=== PATIENT | female | born 1995 | race Caucasian/White ===

== ENCOUNTER 2018-10-13 21:46 | Emergency (ER) | payer OTHER ==
--- NOTE | 2018-10-13 23:43 | ER Document Report ---
ED Medical Screen (RME) - General Chief Complaint: Chest Pain Stated Complaint: CHEST PAIN Time Seen by Provider: 10/13/18 23:41 Notes: 23-year-old female with chief complaint of sensation of pain in the center of her chest without so the sensation of her heart racing and palpitations. Intermittent lightheadedness reported. Denies passing out, difficulty breathing, fever, vomiting. Currently on doxycycline for Lyme's disease diagnosis, has been taking this for 1 week so far. Denies any other medications. Denies recreational drugs. TRAVEL OUTSIDE OF THE [place] IN LAST 30 DAYS: No Past Medical History - Social History Chew tobacco use (# tins/day): No Drug Abuse: None Renal/ Medical History: Denies: Hx Peritoneal Dialysis Physical Exam - Vital signs Vitals: Temp Pulse Resp BP Pulse Ox 98.2 F 73 14 120/70 100 10/13/18 22:29 10/13/18 22:29 10/13/18 22:29 10/13/18 22:29 10/13/18 22:29 - Cardiovascular Rhythm: Regular. No: Tachycardia Heart sounds: Normal auscultation, S1 appreciated, S2 appreciated Course - Vital Signs Vital signs: Temp Pulse Resp BP Pulse Ox 98.2 F 73 14 120/70 100 10/13/18 22:29 10/13/18 22:29 10/13/18 22:29 10/13/18 22:29 10/13/18 22:29
[2018-10-14 00:11] LABS: ABSOLUTE EOSINOPHILS # (AUTO) 0.4 10^3/uL (0.0-0.6); ABSOLUTE LYMPHOCYTES (AUTO) 2.4 10^3/uL (0.5-4.7); ABSOLUTE MONOCYTES (AUTO) 0.6 10^3/uL (0.1-1.4); ABSOLUTE NEUT (AUTO) 2.1 10^3/uL (1.7-8.2); BASOPHILS % (AUTO) 0.7 % (0-2); EOSINOPHILS % (AUTO) 7.8 % (0-6); HEMATOCRIT 34.6 % (36.0-47.0); HEMOGLOBIN 11.7 g/dL (12.0-15.5); LYMPHOCYTES % (AUTO) 43.8 % (13-45); MEAN CORPUSCULAR HEMOGLOBIN 28.2 pg (27.0-33.4); MEAN CORPUSCULAR HGB CONC 33.7 g/dL (32.0-36.0); MEAN CORPUSCULAR VOLUME 84 fl (80-97); MONOCYTES % (AUTO) 10.2 % (3-13); PLATELET COUNT 196 10^3/uL (150-450); RED BLOOD COUNT 4.14 10^6/uL (3.72-5.28); RED CELL DISTRIBUTION WIDTH 13.8 % (11.5-14.0); SEGMENTED NEUTROPHILS % (AUTO) 37.5 % (42-78); TOTAL CELLS COUNTED % (AUTO) 100 %; WHITE BLOOD COUNT 5.5 10^3/uL (4.0-10.5)
--- NOTE | 2018-10-14 00:13 | RADIOLOGY REPORT (SQ) ---
EXAM DESCRIPTION: XR CHEST 2 VIEWS COMPLETED DATE/TME: 10/13/2018 23:41 CLINICAL HISTORY: 23 years, Female, chest pain COMPARISON: None. NUMBER OF VIEWS: 2 TECHNIQUE: Frontal and lateral views of the chest LIMITATIONS: None. FINDINGS: Heart size is normal. Lungs are clear. No pneumothorax IMPRESSION: Negative chest copyright 2010 [employer]- All Rights Reserved
[2018-10-14 00:22] LABS: BLOOD UREA NITROGEN 10 mg/dL (7-20); CALCIUM 9.5 mg/dL (8.4-10.2); GLUCOSE 98 mg/dL (75-110); POTASSIUM 4.3 mmol/L (3.6-5.0)
[2018-10-14 00:34] LABS: CARBON DIOXIDE 28 mmol/L (22-30); CHLORIDE 106 mmol/L (98-107); SODIUM 139.9 mmol/L (137-145)
[2018-10-14 00:40] LABS: ANION GAP 6 (5-19)
--- NOTE | 2018-10-14 02:42 | ER Document Report ---
ED General - General Chief Complaint: Chest Pain Stated Complaint: CHEST PAIN Time Seen by Provider: 10/13/18 23:41 Notes: Patient is a 23-year-old female presents with complaint of chest pain. Says the pain is mostly left side. Little bit worse with taking a deep breath. No fevers. No vomiting. Some chills. Said symptoms started today. She says the pain is not positional. She sometimes feels as if her heart is racing. She was diagnosed with Lyme disease 2 weeks ago. She says she has been having symptoms of fatigue and some joint pain for several months now. Her doctor did a Lyme test and was positive and therefore placed on doxycycline. She is been on doxycycline for approximately 2 weeks. She says that she thinks she was she might have gotten Lyme when she was in [place] in April. He does not remember actually moving a tick from herself. TRAVEL OUTSIDE OF THE [place] IN LAST 30 DAYS: No Past Medical History - Social History Smoking Status: Never Smoker Chew tobacco use (# tins/day): No Drug Abuse: None Family History: Reviewed & Not Pertinent Patient has suicidal ideation: No Patient has homicidal ideation: No Renal/ Medical History: Denies: Hx Peritoneal Dialysis Review of Systems - Review of Systems Notes: My Normal Review Basic REVIEW OF SYSTEMS: CONSTITUTIONAL : Denies fever, chills, or sweats. Denies recent illness. EENT: Denies eye, ear, throat, or mouth pain or symptoms. Denies nasal or sinus congestion. CARDIOVASCULAR: Chest pain RESPIRATORY: Denies cough, cold, or chest congestion. Denies shortness of breath, difficulty breathing, or wheezing. GASTROINTESTINAL: Denies abdominal pain. Denies nausea, vomiting, or diarrhea. Denies constipation. Last BM: GENITOURINARY: Denies difficulty urinating, painful urination, burning, frequency, or blood in urine. MUSCULOSKELETAL: Denies neck or back pain or joint pain or swelling. SKIN: Denies rash or skin lesions. NEUROLOGICAL: Denies altered mental status or loss of consciousness. Denies headache. Denies weakness or paralysis or loss of use of either side. Denies problems with gait or speech. Denies sensory or motor loss. ALL OTHER SYSTEMS REVIEWED AND NEGATIVE. Physical Exam - Vital signs Vitals: Temp Pulse Resp BP Pulse Ox 98.2 F 73 14 120/70 100 10/13/18 22:29 10/13/18 22:29 10/13/18 22:29 10/13/18 22:29 10/13/18 22:29 - Notes Notes: General Appearance: Well nourished, alert, cooperative, no acute distress, no obvious discomfort. Well-appearing. Vitals: reviewed, See vital signs table. Head: no swelling or tenderness to the head Eyes: PERRL, EOMI, Conjuctiva clear Mouth: No decreasd moisture Neck: Supple, no neck tenderness, No thyromegaly Lungs: No wheezing, No rales, No rhonci, No accessory muscle use, good air exchange bilaterally. Heart: Normal rate, Regular rythm, No murmur, no rub Abdomen: Normal BS, soft, No rigidity, No abdominal tenderness, No guarding, no rebound, no abdominal masses, no organomegaly Extremities: strength 5/5 in all extremities, good pulses in all extremities, no swelling or tenderness in the extremities Skin: warm, dry, appropriate color, no rash Neuro: speech clear, oriented x 3, normal affect, responds appropriately to que stions. Course - Re-evaluation Re-evalutation: 10/14/18 02:55 Bedside ultrasound does not show any evidence of pericardial effusion and does not show gross evidence of impaired contraction. 10/14/18 04:33 Evaluation patient continues look well. She no further concerns at this time. D-dimer is negative. Troponin is negative. She has no pericardial effusion on the ultrasound. I do not suspect pericarditis or myocarditis due to lyme disease as her pain is not positional, she does not have a pericardial effusion, she has not ST elevation on EKG. and her Troponin is normal. The most common effects of Lyme disease on the heart would be an AV manuelito block. She has no evidence of AV manuelito block as her [place] interval is normal. I do not hear any murmurs on exam. Cardiomyopathy is extremely rare and only case of cardiomyopat hy related to Lyme's disease have occurred in [place]. I do not suspect cardiomyopathy in that the patient has good ventricular contraction on bedside ultrasound and she has clear lung rush without evidence of rales and she has no extremity edema. At this time I feel the patient is safe to be discharged home. I will give her follow-up with cardiology. I encouraged her return to ER if she has worsening pain, difficulty breathing, fevers, or feels unwell. I encouraged her to continue take her doxycycline. Patient agrees with plan and will be discharged home. Dictation of this chart was performed using voice recognition software; therefore, there may be some unintended grammatical errors. - Vital Signs Vital signs: Temp Pulse Resp BP Pulse Ox 98.2 F 73 14 120/70 100 10/13/18 22:29 10/13/18 22:29 10/13/18 22:29 10/13/18 22:29 10/13/18 22:29 - Laboratory Result Diagrams: 10/13/18 23:45 10/13/18 23:45 Laboratory results interpreted by me: 10/13/18 23:45 Hgb 11.7 L Hct 34.6 L Seg Neutrophils % 37.5 L Eosinophils % 7.8 H - EKG Interpretation by Me Additional EKG results interpreted by me: 10/14/18 02:41 EKG is reviewed and interpreted by me. EKG shows sinus rhythm with rate of [address] segment elevation or depression. No ischemic T wave inversions. [place] interval, QRS duration, QT intervals are within normal range. No old EKG available for comparison. Discharge - Discharge Clinical Impression: Chest pain Qualifiers: Chest pain type: unspecified Qualified Code(s): R07.9 - Chest pain, unspecified Additional Instructions: Please continue to take your Doxycyline as prescribed. Please make an appointment to see the crew lead, Dr. Betts, for reevaluation in regards to your chest pain. Please call his office this morning to make a close follow up appointment. Referrals: DELMI BETTS MD [ACTIVE STAFF] - Follow up in 3-5 days (call office this am to make close follow up appointment)
[2018-10-14 04:51] VITALS: BP 100/63
--- NOTE | 2018-10-14 09:07 | EKG REPORT ---
SEVERITY:- NORMAL ECG - SINUS RHYTHM : Confirmed by: Elidia Betts MD 14-Oct-2018 09:06:16
== END 2018-10-14 04:51 | disposition home or self-care (01) ==
LOC: EDBD → ER 21:46
DX: R07.9 Chest pain, unspecified (principal)
CPT/HCPCS: 36415; 71046; 80048; 84443; 84484; 84703; 85025; 85379; 93005; 93010; 99285

== ENCOUNTER 2019-09-25 00:09 | Emergency (ER) | payer OTHER ==
[2019-09-25 00:17] VITALS: BP 122/74
[2019-09-25] MEDS ORDERED: ACETAMINOPHEN 325 MG TABLET PO ONE (00:38)
== END 2019-09-25 02:00 | disposition left against medical advice (07) ==
LOC: ER 00:09
DX: Z53.21 Procedure and treatment not carried out due to patient leaving prior to being seen by health care provider (principal)